=== PATIENT | male | born 2005 | race Two or more races ===

== ENCOUNTER 2024-09-26 14:37 | Emergency (ER) | payer OTHER ==
[~2024-09-26] VITALS: Ht 180.3 cm; Wt 86.2 kg
[2024-09-26] MEDS ORDERED: ORPHENADRINE CITRATE 30 MG/ML AMPUL IM STA (15:25)
[2024-09-26 16:13] LABS: HEMATOCRIT 45.1 % (39.0-48.0); HEMOGLOBIN 15.2 g/dL (13-16.00); MEAN CELL VOLUME 78.2 fL (80.0-100.00); MEAN CORPUSCULAR HEMOGLOBIN 26.3 pg (27.00-32.0); MEAN CORPUSCULAR HGB CONC 33.7 g/dl (32.0-36.0); PLATELET COUNT 250 K/uL (150-450); RED BLOOD COUNT 5.76 M/uL (4.00-6.00); RED CELL DISTRIBUTION WIDTH 13.1 % (11.5-14.5)
[2024-09-26 16:41] LABS: URINE APPEARANCE Clear; URINE BILIRRUBIN Negative (NEGATIVE); URINE BLOOD Negative; URINE COLOR Yellow; URINE GLUCOSE Negative (NEGATIVE); URINE KETONE Trace (NEGATIVE); URINE LEUKOCYTE Negative; URINE NITRATE Negative; URINE PROTEIN Negative (NEGATIVE)
[2024-09-26 16:44] LABS: URINE BACTERIA 4.8 uL (0.0-1933); URINE RBC 8.8 uL (0.0-20.8); URINE WBC 2.5 uL (0.0-23.2)
[2024-09-26 17:10] LABS: URINE EPITHELIAL CELLS 0.9 uL (0.0-38.8)
== END 2024-09-26 17:20 | disposition home or self-care (01) ==
LOC: EMR PED 14:39 → ER 14:39 → EMR PED 15:17
DX: M62.838 Other muscle spasm (principal)